=== PATIENT | male | born 1990 ===

== ENCOUNTER 2017-12-06 03:55 | Emergency (ER) | payer MEDICAID ==
[~2017-12-06] VITALS: Ht 165.1 cm; Wt 63.5 kg
[2017-12-06] MEDS: chlorproMAZINE 50 MG/2 ML AMPUL IM ONE (04:22)
[2017-12-06] MEDS ORDERED: chlorproMAZINE 50 MG/2 ML AMPUL ONE (04:23)
--- NOTE | 2017-12-06 07:00 | NUR ---
Report received from top carrier, pt sleeping with NAD noted.
--- NOTE | 2017-12-06 08:00 | NUR ---
Pt woke up and ate breakfast then stated he still feels tired and his feet hurt and wants to sleep some more.
--- NOTE | 2017-12-06 10:00 | NUR ---
Pt is sleeping with NAD noted.
[2017-12-06 11:16] LABS: BASOPHILS # (AUTO) 0.1 K/uL (0.0-8.0); BASOPHILS % (AUTO) 1.2 % (0.0-2.0); EOSINOPHILS # (AUTO) 0.2 K/uL (0.0-0.7); EOSINOPHILS % (AUTO) 3.5 % (0.0-7.0); HEMATOCRIT 37.4 % (36.7-47.1); LYMPHOCYTES # (AUTO) 2.2 K/uL (20.0-40.0); LYMPHOCYTES % (AUTO) 33.6 % (20.5-51.5); MEAN CORPUSCULAR HEMOGLOBIN 32.3 uug (23.8-33.4); MEAN CORPUSCULAR HGB CONC 35 g/dL (32.5-36.3); MEAN CORPUSCULAR VOLUME 92.5 fL (73.0-96.2); MONOCYTES # (AUTO) 0.7 K/uL (2.0-10.0); NEUTROPHILS # (AUTO) 3.3 K/uL (1.8-8.9); NEUTROPHILS % (AUTO) 50.7 % (38.5-71.5); PLATELET COUNT (AUTO) 216 K/uL (152-348); RED BLOOD CELL COUNT(AUTO) 4.04 MIL/uL (4.06-5.63); WHITE BLOOD COUNT (AUTO) 6.4 K/uL (3.6-10.2)
[2017-12-06] MEDS ORDERED: OLANZAPINE 10 MG VIAL IM ONE (11:19)
--- NOTE | 2017-12-06 11:20 | NUR ---
Pt woke up, was lying in the gurney and screaming out loud. Pt was re-evaluated by ER physician and medicated as ordered.
[2017-12-06 11:23] LABS: CARBON DIOXIDE 23 mmol/L (21-32); CHLORIDE 105 mmol/L (98-107); CREATININE 0.8 mg/dL (0.6-1.3); ETHANOL < 3 MG/DL (0-0); GLUCOSE 82 mg/dL (74-106); POTASSIUM 3.4 mmol/L (3.5-5.1); UREA NITROGEN, BLOOD 21 mg/dL (7-18)
[2017-12-06] MEDS: OLANZAPINE 10 MG VIAL IM ONE (11:23)
[2017-12-06 11:28] LABS: ALANINE AMINOTRANSFERASE 177 U/L (16-63); ALKALINE PHOSPHATASE 54 U/L (50-136); BILIRUBIN,DIRECT 0.3 mg/dL (0.0-0.2); BILIRUBIN,TOTAL 0.7 mg/dL (0.2-1.0)
[2017-12-06 11:36] LABS: *AMPHETAMINE, URINE POSITIVE (NEGATIVE); *BARBITURATE, URINE NEGATIVE (NEGATIVE); *CANNABINOID, URINE POSITIVE (NEGATIVE); *COCCAINE, URINE NEGATIVE (NEGATIVE); *OPIATE, URINE NEGATIVE (NEGATIVE); *PHENCYCLIDINE SCREEN,URINE NEGATIVE (NEGATIVE)
[2017-12-06 11:49] LABS: ASPARTATE AMINOTRANSFERASE 162 U/L (15-37)
--- NOTE | 2017-12-06 14:37 | NUR ---
Per Dr David request, spoke to PET wet suit gluer DIOR Pena. ETA 30 min.
--- NOTE | 2017-12-06 15:30 | NUR ---
Becky at bedside for psych eval.
--- NOTE | 2017-12-06 15:51 | NUR ---
Pt is alert and ambulated to restroom with steady gait.
--- NOTE | 2017-12-06 16:00 | NUR ---
Pt was given referrals for follow up by Becky.
--- NOTE | 2017-12-06 16:20 | NUR ---
Pt is awake,alert and oriented x 3. Pt is eating lunch, states he called his mother.
--- NOTE | 2017-12-06 16:28 | NUR ---
Written and verbal after care instructions given. Patient verbalizes understanding of instructions.
--- NOTE | 2017-12-06 17:00 | NUR ---
Pt made a few more telephone calls and then ambulated out of ER with steady gait.
[2017-12-06 17:05] VITALS: BP 117/63
== END 2017-12-06 17:06 | disposition home or self-care (01) ==
LOC: ER 04:00
DX: F12.10 Cannabis abuse, uncomplicated (principal); F15.10 Other stimulant abuse, uncomplicated
CPT/HCPCS: 36415; 80307; 85025; A4663; G0480; J2358; J3230